=== PATIENT | male | born 1940 | race American Indian/Alaskan Native ===

== ENCOUNTER 2018-01-17 09:58 | Inpatient (IN) | payer MEDICARE, BC ==
[2018-01-17] MEDS ORDERED: Sodium Chloride 0.9% 1,000 ML IV STA (10:33)
--- NOTE | 2018-01-17 10:48 | ED PDOC ---
Arrival/HPI - General Chief Complaint: GI Problem Time Seen by Provider: 01/17/18 10:32 Historian: Patient - History of Present Illness Narrative History of Present Illness (Text): 01/17/18 10:43 77yo male with no PMhx who present with complaint of BBPR from last night. States he noticed blood in the toilet last night after bowel movement and this morning also. Reports an episode of vomiting this morning. Denies abdominal pain , chest pain, dizziness, SOB, diarrhea, constipation, melena, headache, any other complaint. Past Medical History - Provider Review Nursing Documentation Reviewed: Yes - Cardiac Hx Cardiac Disorders: No - Pulmonary Hx Respiratory Disorders: No - Neurological Hx Neurological Disorder: No - HEENT Hx HEENT Disorder: No - Renal Hx Renal Disorder: No - Endocrine/Metabolic Hx Endocrine Disorders: No - Hematological/Oncological Hx Blood Disorders: No - Integumentary Hx Dermatological Disorder: No - Musculoskeletal/Rheumatological Hx Musculoskeletal Disorders: No - Gastrointestinal Hx Gastrointestinal Disorders: No - Genitourinary/Gynecological Hx Genitourinary Disorders: No - Psychiatric Hx Psychophysiologic Disorder: No Hx Substance Use: No Family/Social History - Physician Review Nursing Documentation Reviewed: Yes Family/Social History: Unknown Family HX Smoking Status: Never Smoked Hx Alcohol Use: No Hx Substance Use: No Allergies/Home Meds Allergies/Adverse Reactions: Allergies No Known Allergies Allergy (Verified 01/17/18 10:03) Home Medications: Home Meds Medication Instructions Recorded Confirmed No Known Home Med 01/17/18 01/17/18 Review of Systems - Physician Review All systems were reviewed & negative as marked: Yes - Review of Systems Constitutional: Normal Eyes: Normal ENT: Normal Respiratory: Normal Cardiovascular: Normal Gastrointestinal: Vomiting, Hematochezia. absent: Abdominal Pain, Constipation , Diarrhea, Nausea, Hematemesis Genitourinary Male: Normal Musculoskeletal: Normal Skin: Normal Neurological: Normal Endocrine: Normal Hemo/Lymphatic: Normal Psychiatric: Normal Physical Exam Vital Signs Reviewed: Yes Vital Signs Temp Pulse Resp BP Pulse Ox 01/17/18 11:20 98 H 18 128/74 100 01/17/18 10:06 97.9 F 120 H 17 131/81 100 Temperature: Afebrile Blood Pressure: Normal Pulse: Tachycardic Respiratory Rate: Normal Appearance: Positive for: Well-Appearing, Non-Toxic, Comfortable Pain Distress: None Mental Status: Positive for: Alert and Oriented X 3 - Systems Exam Head: Present: Atraumatic, Normocephalic Pupils: Present: PERRL Extroacular Muscles: Present: EOMI Conjunctiva: Present: Normal Mouth: Present: Moist Mucous Membranes Neck: Present: Normal Range of Motion Respiratory/Chest: Present: Clear to Auscultation, Good Air Exchange. No: Respiratory Distress, Accessory Muscle Use Cardiovascular: Present: Regular Rate and Rhythm, Normal S1, S2. No: Murmurs Abdomen: Present: Distention (Secondary to body habitus), Normal Bowel Sounds, Other (soft). No: Tenderness, Peritoneal Signs, Rebound, Guarding, McBurney's Point Tender, Rovsing's Sign Present Back: Present: Normal Inspection Upper Extremity: Present: Normal Inspection. No: Cyanosis, Edema Lower Extremity: Present: Normal Inspection. No: Edema Neurological: Present: GCS=15, CN II-XII Intact, Speech Normal Skin: Present: Warm, Dry, Normal Color. No: Rashes Psychiatric: Present: Alert, Oriented x 3, Normal Insight, Normal Concentration Medical Decision Making ED Course and Treatment: 01/17/18 11:49 PT in ED for stated history. He was tachy, but not in distress. He was hydrated and repeat HR improved s/p. He had gross BPR in ED. h/H 11.1 EKG NSR with nonspecific T wave abnormality @ 100bpm. CXR NAD Pt does not see a Doctor. He needs admission for further evaluation of his active bleeding. Case was DW Dr. Kaye and he accepted pt to his service. He saw pt in ED by the bedside. - Lab Interpretations Lab Results: 01/17/18 10:25 01/17/18 10:25 Lab Results 01/17/18 10:44: Blood Type B POSITIVE, Antibody Screen Negative, BBK History Checked No verified bt 01/17/18 10:25: Sodium 136, Potassium 4.3, Chloride 101, Carbon Dioxide 20 L, Anion Gap 20, BUN 20, Creatinine 1.2, Est GFR ( Amer) > 60, Est GFR (Non- Af Amer) 58, Random Glucose 186 H, Calcium 9.0, Total Bilirubin 0.5, AST 30, ALT 27, Alkaline Phosphatase 53, Lactate Dehydrogenase 363, Total Creatine Kinase 106, Troponin I 0.02, Total Protein 7.2, Albumin 4.0, Globulin 3.2, Albumin/Globulin Ratio 1.2, Lipase 226 01/17/18 10:25: PT 14.1 H, INR 1.22 H, APTT 28.2 01/17/18 10:25: WBC 11.1 H, RBC 3.52, Hgb 11.1 L, Hct 33.2 L, MCV 94.3, MCH 31.5 , MCHC 33.4, RDW 14.6 H, Plt Count 251, MPV 9.2, Gran % 73.9 H, Lymph % (Auto) 21.1 L, Larimer % (Auto) 4.8, Eos % (Auto) 0.0 L, Baso % (Auto) 0.2, Gran # 8.19 H , Lymph # (Auto) 2.3, Larimer # (Auto) 0.5, Eos # (Auto) 0.0, Baso # (Auto) 0.02 01/17/18 10:25: Urine Color Yellow, Urine Appearance Clear, Urine pH 6.0, Ur Specific Becker >= 1.030, Urine Protein 30 H, Urine Glucose (UA) Negative, Urine Ketones Negative, Urine Blood Trace-intact H, Urine Nitrate Negative, Urine Bilirubin Negative, Urine Urobilinogen 0.2, Ur Leukocyte Esterase Negative , Urine RBC 2 - 5, Urine WBC 0 - 2, Ur Epithelial Cells None, Amorphous Sediment Few, Urine Bacteria Mod, Fine Granular Casts 0 - 2 - RAD Interpretation Radiology Orders: 01/17/18 10:43 CHEST PORTABLE [RAD] Stat - Medication Orders Current Medication Orders: Sodium Chloride (Sodium Chloride 0.45%) 1,000 mls @ 60 mls/hr IV .[id number] [facility] Last Admin: 01/17/18 11:33 Dose: 60 mls/hr eMAR Start Stop Document 01/17/18 11:33 SE (Rec: 01/17/18 11:33 SE [id number]) Intravenous Solution Start Date 01/17/18 Start Time 11:33 Pantoprazole Sodium (Protonix 40mg Ivpb) 40 mg in 100 mls @ 200 mls/hr IVPB 0600 [facility] Ondansetron HCl (Zofran Inj) 4 mg IVP Q6H PRN PRN Reason: Nausea/Vomiting Discontinued Medications Sodium Chloride (Sodium Chloride 0.9%) 1,000 mls @ 999 mls/hr IV .Q1H1M STA Stop: 01/17/18 11:33 Last Admin: 01/17/18 10:38 Dose: 999 mls/hr eMAR Start Stop Document 01/17/18 10:38 SE (Rec: 01/17/18 10:38 SE [id number]) Intravenous Solution Start Date 01/17/18 Start Time 10:38 Ondansetron HCl (Zofran Inj) 4 mg IVP STAT STA Stop: 01/17/18 10:35 Last Admin: 01/17/18 10:38 Dose: 4 mg IVP Administration Document 01/17/18 10:38 SE (Rec: 01/17/18 10:38 SE [id number]) Charges for Administration # of IVP Administrations 1 Pantoprazole Sodium (Protonix Inj) 40 mg IVP STAT STA Stop: 01/17/18 10:34 Last Admin: 01/17/18 10:38 Dose: 40 mg IVP Administration Document 01/17/18 10:38 SE (Rec: 01/17/18 10:38 SE [id number]) Charges for Administration # of IVP Administrations 1 Disposition/Present on Arrival - Present on Arrival Any Indicators Present on Arrival: No History of DVT/PE: No History of Uncontrolled Diabetes: No Urinary Catheter: No History of Decub. Ulcer: No History Surgical Site Infection Following: None - Disposition Have Diagnosis and Disposition been Completed?: Yes Diagnosis: GI bleed Disposition: HOSPITALIZED Disposition Time: 11:30 Patient Plan: Admission Condition: FAIR
[2018-01-17 10:59] LABS: BASO # 0.02 K/mm3 (0.0-2.0); BASO % 0.2 % (0.0-3.0); GRAN # 8.19 (1.4-6.5); GRAN % 73.9 % (50.0-68.0); HEMOGLOBIN 11.1 g/dL (14.0-18.0); LYMPH # 2.3 (1.2-3.4); LYMPH % 21.1 % (22.0-35.0); MEAN CELL VOLUME 94.3 fl (80.0-105.0); MEAN CORPUSCULAR HEMOGLOBIN 31.5 pg (25.0-35.0); MEAN CORPUSCULAR HGB CONC 33.4 g/dl (31.0-37.0); MEAN PLATELET VOLUME 9.2 fl (7.0-11.0); MONO # 0.5 (0.1-0.6); MONO % 4.8 % (1.0-6.0); RBC 3.52 10^6/uL (3.5-6.1); RED CELL DISTRIBUTION WIDTH 14.6 % (11.5-14.5); WHITE BLOOD COUNT 11.1 10^3/ul (4.5-11.0)
[2018-01-17 11:04] LABS: ALB/GLOB RATIO 1.2 (1.1-1.8); ALT/SGPT 27 U/L (7-56); AST/SGOT 30 U/L (17-59); BLOOD UREA NITROGEN 20 mg/dL (7-21); GFR AFRICAN-AMERICAN > 60; GFR NON-AFRICAN AMERICAN 58; LIPASE 226 U/L (23-300)
[2018-01-17 11:05] LABS: URINE BILIRUBIN NEGATIVE (NEGATIVE); URINE BLOOD TRACE-INTACT (NEGATIVE); URINE GLUCOSE (UA) NEGATIVE (NEGATIVE); URINE LEUKOCYTE ESTERASE NEGATIVE Leu/uL (NEGATIVE); URINE NITRATE NEGATIVE (NEGATIVE); URINE PROTEIN 30 mg/dL (<30 mg/dL); URINE UROBILINOGEN 0.2 E.U./dL (<1 E.U./dL)
[2018-01-17 11:07] LABS: URINE APPEARANCE CLEAR (CLEAR); URINE COLOR YELLOW (YELLOW)
[2018-01-17 11:14] LABS: TROPONIN I 0.02 ng/mL
[2018-01-17 11:16] LABS: INR 1.22 (0.93-1.08); PARTIAL THROMBOPLASTIN TIME 28.2 Seconds (25.1-36.5); PROTHROMBIN TIME 14.1 SECONDS (9.4-12.5)
[2018-01-17] MEDS: Sodium Chloride 0.45% 1,000 ML IV SCH (11:33)
[2018-01-17 11:44] LABS: URINE BACTERIA MOD (NEG); URINE WBC 0 - 2 /hpf (0-6)
[2018-01-17 11:45] LABS: URINE AMORPHOUS SEDIMENT FEW; URINE FINE GRANULAR CAST 0 - 2 /hpf (0-2)
--- NOTE | 2018-01-17 12:18 | RAD ---
HISTORY: admission COMPARISON: No prior. FINDINGS: LUNGS: No active pulmonary disease. PLEURA: No significant pleural effusion identified, no pneumothorax apparent. CARDIOVASCULAR: Normal. OSSEOUS STRUCTURES: No significant abnormalities. VISUALIZED UPPER ABDOMEN: Normal. OTHER FINDINGS: None. IMPRESSION: No active disease.
--- NOTE | 2018-01-17 12:30 | CARD ---
APPROVED REPORT EKG Measurement Heart [id number] WI [id number] <Conclusion> Normal sinus rhythm Nonspecific T wave abnormality Abnormal ECG
[2018-01-17 12:55] VITALS: BMI 24.3
[2018-01-17] MEDS ORDERED: Pneumococcal 23-Valent Vaccine IM ONE (12:55)
[2018-01-17] MEDS ORDERED: Influenza Vaccine 60 mcg/0.5 mL SYR (4YR UP) IM ONE (12:55)
[2018-01-18] MEDS: Pantoprazole 40mg/100mL NS 40 MG/100 ML BAG IVPB SCH (05:36)
[2018-01-18] MEDS ORDERED: Barium Sulfate Susp 2.1% w/v, 2.0% w/w 450 mL Bottle PO ONE (07:28)
[2018-01-18 08:09] LABS: HEMOGLOBIN 9.5 g/dL (14.0-18.0); MEAN CELL VOLUME 93.8 fl (80.0-105.0); MEAN CORPUSCULAR HGB CONC 33.1 g/dl (31.0-37.0); MEAN PLATELET VOLUME 8.7 fl (7.0-11.0); RBC 3.06 10^6/uL (3.5-6.1); RED CELL DISTRIBUTION WIDTH 14.8 % (11.5-14.5); WHITE BLOOD COUNT 7.7 10^3/ul (4.5-11.0)
--- NOTE | 2018-01-18 08:12 | HP ---
HISTORY OF PRESENT ILLNESS: I was called on to the emergency room to admit this nice young man who has had some bright red blood per rectum. He is a little uncomfortable. No abdominal pain. He had an episode of vomiting. Asking for Dr. Chris to be consulted. He has no medical history. He is a 77-year-old man with blood in the stools and nauseousness. FAMILY HISTORY: He has no family history. SOCIAL HISTORY: Never smoked. No alcohol. No drugs. ALLERGIES: NO KNOWN DRUG ALLERGIES. MEDICATIONS: Does not take any medications. REVIEW OF SYSTEMS: He has no vision changes, no hearing changes. No sore throat. No chest pain or palpitations. No shortness of breath or coughing. No wheezes or rhonchi. He did have vomiting, hematochezia; he had blood in the stools. No problems urinating. No back pain or leg pain or skin issues. No anxiety or depression or sweating. No tremors. PHYSICAL EXAMINATION: VITAL SIGNS: He has 97.9 temperature, 120 pulse, came down to 98, 17 respiratory rate, 131/81 blood pressure, 100% O2 sat. GENERAL: Well appearing, nontoxic, comfortable, alert, oriented x3. HEENT: Head is atraumatic, normocephalic. His pupils are equal, reactive to light and accommodation. Extraocular muscles are intact. Throat is moist. NECK: Supple. HEART: Regular rate. Normal S1, S2. LUNGS: Clear to auscultation bilaterally. ABDOMEN: Soft, nontender. Positive bowel sounds. No guarding, no rebound. No CVA tenderness. EXTREMITIES: No edema. NEUROLOGICAL: GCS is 15. Cranial nerves are II through XII grossly intact. SKIN: Warm and dry. Alert and oriented x3. He had bright red blood per rectum. He is throwing up. No blood in the throw up. ASSESSMENT AND PLAN: He will be here with IV fluids, Protonix. We will make him n.p.o. Get Dr. Chris, Gastroenterology, to see him. We will put him on Protonix and Zofran and hopefully, he will do well. Az Kaye DO
[2018-01-18 08:21] LABS: ALB/GLOB RATIO 1.3 (1.1-1.8); ALBUMIN 3.8 g/dL (3.0-4.8); ALT/SGPT 29 U/L (7-56); AST/SGOT 32 U/L (17-59); BLOOD UREA NITROGEN 14 mg/dL (7-21); CALCIUM 9.1 mg/dL (8.4-10.5); GFR AFRICAN-AMERICAN > 60; GFR NON-AFRICAN AMERICAN 58
[2018-01-18] MEDS ORDERED: Iohexol 350 MG/100 ML VIAL ONE (08:59)
--- NOTE | 2018-01-18 11:16 | CT ---
PROCEDURE: CT Abdomen and Pelvis with contrast HISTORY: GI BLEEDING LEUCOCYTOSIS R/O COLITIS COMPARISON: None. TECHNIQUE: Contrast dose: 100 cc of Omni 350 Radiation dose: Total exam DLP = 317 mGy-cm. This CT exam was performed using one or more of the following dose reduction techniques: Automated exposure control, adjustment of the mA and/or kV according to patient size, and/or use of iterative reconstruction technique. FINDINGS: LOWER THORAX: Unremarkable. LIVER: Unremarkable. No gross lesion or ductal dilatation. GALLBLADDER AND BILE DUCTS: Unremarkable. PANCREAS: Unremarkable. No gross lesion or ductal dilatation. SPLEEN: Unremarkable. ADRENALS: Unremarkable. No mass. KIDNEYS AND URETERS: Unremarkable. No hydronephrosis. No solid mass. VASCULATURE: Unremarkable. No aortic aneurysm. BOWEL: There is severe mural thickening in the cecum and ascending colon. This could be secondary to colitis. However a colon malignancy cannot be excluded. Colonoscopy followup may be indicated. APPENDIX: Normal appendix. PERITONEUM: Unremarkable. No free fluid. No free air. LYMPH NODES: Unremarkable. No enlarged lymph nodes. BLADDER: Unremarkable. REPRODUCTIVE: The prostate is enlarged measuring 58 mm transversely. BONES: No acute fracture. OTHER FINDINGS: None. IMPRESSION: There is severe mural thickening in the cecum and ascending colon. This could be secondary to colitis. However a colon malignancy cannot be excluded.
--- NOTE | 2018-01-18 11:17 | CON ---
DATE: This is Dr. Arnett covering for Dr. Demetrio Chris. REASON FOR CONSULTATION: GI bleeding, bleeding per rectum. HISTORY OF PRESENT ILLNESS: This 77-year-old patient with past medical history of dyslipidemia, noticed bright red blood per rectum last night. He has not had any bleeding at that time. Again, we have noticed another episode of bright red blood per rectum this morning and the patient was concerned, presented to the Emergency Room. PAST MEDICAL HISTORY: Other past medical history is significant for dyslipidemia. The patient admits having colonoscopy done many years ago at [facility], does not remember the details. SOCIAL HISTORY: Denies alcohol. No smoking. ALLERGIES: NO KNOWN DRUG ALLERGY. REVIEW OF SYSTEMS: Positive as above. Other systems reviewed. PHYSICAL EXAMINATION GENERAL: The patient is lying on the bed, not in acute distress. VITAL SIGNS: Temperature 98.7, pulse 98, blood pressure 142/95, respirations 18. HEENT: Atraumatic, anicteric. NECK: Supple. HEART: S1, S2 heard. LUNGS: Bilateral air entry present. ABDOMEN: Soft. There is no mass palpable, no tenderness. EXTREMITIES: No edema. No cyanosis.+ NEUROLOGICAL: Alert, oriented. Moves all the extremities. LABORATORY DATA: Hemoglobin 11.1, hematocrit 33.2, WBC is 11.1, platelets 251,000. LFTs normal. IMPRESSION: 1. This 77-year-old patient with history of dyslipidemia, presented with acute onset of bright red blood per rectum yesterday. He had another episode this morning. No previous episodes like this. Hemoglobin is 11.1. The patient had mildly elevated leukocytosis. Differential diagnoses include internal hemorrhoids, diverticulosis, angiodysplasia, colonic neoplasia; upper GI source also should be considered in the differential diagnosis. 3. The patient does have mild leukocytosis. We would recommend: 1. Followup of the hemoglobin and hematocrit. 2. Agree with empiric treatment of the PPI. 3. The patient would benefit from the EGD and also, colonoscopy to further evaluate. The patient appears to be more stable. No further episodes of bleeding. The patient has a mildly elevated leukocytosis, rule out any colitis. We will request for CT scan of the abdomen and pelvis with p.o. and IV contrast to further evaluate. The patient will consider upper GI endoscopy and also, colonoscopy to further evaluate. Timing will be based on the clinical course and review of the above workup. Thank you very much for allowing me to participate in the care of the patient. Anastasia Arnett MD [facility]
[2018-01-18] MEDS: Insulin Reg-MEDIUM-Coverage SC SCH ×3 (12:34→23:00)
[2018-01-18] MEDS ORDERED: Peg-Electrolyte Oral Soln 4L (Golytely) PO ONE (15:00)
--- NOTE | 2018-01-18 15:15 | PN ---
DATE: SUBJECTIVE: I saw him resting comfortably in bed. No complaints at this time. Awaiting for GI to come in to make a decision on whether to have a procedure or not. OBJECTIVE VITAL SIGNS: He has 98.7 temperature, 98 pulse. Blood pressure 142/95, I will put him on some blood pressure medications. Respiratory rate is 18 , oxygen saturation is 100% on room air. HEENT: Head is atraumatic, normocephalic. HEART: Regular rate. LUNGS: Clear to auscultation. ABDOMEN: Soft, nontender. Positive bowel sounds. EXTREMITIES: Have no edema. He is currently on Zofran, IV fluids and IV Protonix. I will add some blood pressure medications and Norvasc. LABORATORY DATA: He has 136 sodium, potassium 4.3, BUN 20, creatinine 1.2. Sugar is 186, I will put him on coverage. He might be a diabetic also. He has calcium of 9, AST of 30, ALT of 27, alkaline phosphatase of 53, troponin I is 0.02, total protein is 7.2. He has 7.7 white count, hemoglobin dropped 2 grams to 9.5, hematocrit 28.7 and 232,000 platelets. He had moderate bacteria in the urine. I will put him on some Rocephin. Wait for GI to come in with the CAT scan of the abdomen and pelvis that is pending. He is on a liquid diet. Az Kaye DO
[2018-01-18] MEDS: Sodium Chloride 0.45% 1,000 ML IV SCH (20:57)
--- NOTE | 2018-01-18 21:06 | CON ---
GASTROENTEROLOGY CONSULTATION REQUESTING PHYSICIAN: REASON FOR CONSULTATION: I have been asked to see this 77-year-old male, previously healthy with no prior medical history, who comes to the hospital with 2 days of rectal bleeding. He describes the amount is moderate. He denies any abdominal pain, nausea, vomiting, chest pain, palpitations or shortness of breath. He denies any diarrhea or straining to move his bowels. The patient states that he last had a colonoscopy about 10 years ago and was told everything was okay. PAST MEDICAL HISTORY: Unremarkable. SOCIAL HISTORY: Denies cigarette smoking or alcohol use. FAMILY HISTORY: Noncontributory. REVIEW OF SYSTEMS: A 14-point review of systems is notable for rectal bleeding. MEDICATIONS AT HOME: None. PHYSICAL EXAMINATION: GENERAL: Well-developed male, lying in bed, in no distress. VITAL SIGNS: Reveal temperature of 98.7, blood pressure 142/95, heart rate of 98. HEENT: Reveal sclerae to be white. Conjunctivae pink. NECK: Supple. CHEST: Lungs are clear. HEART: Exam reveals regular rate and rhythm. ABDOMEN: Soft, nontender. No mass. EXTREMITIES: Show no edema. RECTAL: Exam shows no mass. There is dark red blood in the rectal vault. LABORATORY DATA: Reveal hemoglobin of 9.5, this is down from 11.1 yesterday. Chemistries reveal normal electrolytes. AST, ALT, alkaline phosphatase were all normal. PT is 14.1 with an INR 1.22. IMPRESSION: Lower GI bleed. RECOMMENDATIONS: 1. Follow serial hematocrits. 2. Bowel prep has been ordered for colonoscopy in the a.m. 3. CT scan of the abdomen and pelvis has been ordered. Demetrio Chris MD
[2018-01-19] MEDS: Pantoprazole 40mg/100mL NS 40 MG/100 ML BAG IVPB SCH (06:18)
[2018-01-19] MEDS: Insulin Reg-MEDIUM-Coverage SC SCH ×2 (07:39→11:58)
[2018-01-19 07:57] LABS: HEMOGLOBIN 8.5 g/dL (14.0-18.0); MEAN CELL VOLUME 93.8 fl (80.0-105.0); MEAN CORPUSCULAR HGB CONC 33.1 g/dl (31.0-37.0); MEAN PLATELET VOLUME 8.6 fl (7.0-11.0); RBC 2.74 10^6/uL (3.5-6.1); WHITE BLOOD COUNT 10.4 10^3/ul (4.5-11.0)
[2018-01-19] MEDS ORDERED: Lidocaine 2% Inj (20ml) ONE (07:59)
[2018-01-19] MEDS ORDERED: Propofol 10 mg/ml Inj (20 ML) ONE (07:59)
[2018-01-19 08:10] LABS: ALB/GLOB RATIO 1.2 (1.1-1.8); ALBUMIN 3.5 g/dL (3.0-4.8); ALT/SGPT 29 U/L (7-56); AST/SGOT 33 U/L (17-59); BLOOD UREA NITROGEN 12 mg/dL (7-21); CALCIUM 8.9 mg/dL (8.4-10.5); GFR AFRICAN-AMERICAN > 60; GFR NON-AFRICAN AMERICAN > 60
[2018-01-19] MEDS ORDERED: Sodium Chloride 0.9% 1,000 ML IV SCH (09:00)
[2018-01-19 09:04] VITALS: RESP 12; TEMP 98
[2018-01-19 09:13] VITALS: O2SAT 96
[2018-01-19 09:26] VITALS: PULSE 80
[2018-01-19 09:30] VITALS: BP 128/66
--- NOTE | 2018-01-20 07:33 | DS ---
HISTORY OF PRESENT ILLNESS: He had a colonoscopy with Dr. Chris today and Dr. Chris said he did very well. Nothing was found and he could be discharged. So, he will be going home on Protonix and Norvasc. He will follow up with his primary care doctor. He should do very well. HOME MEDICATION: He is on Protonix 40 mg and Norvasc 2.5 mg - that is what he is going home on. He can also continue his multivitamin, his garlic and his vitamin D when he is home. PHYSICAL EXAMINATION: VITAL SIGNS: He has a 98 temperature, 80 pulse, 120/66 blood pressure, 12 respiratory rate, 96% O2 sat. HEENT: Head is atraumatic, normocephalic. HEART: Regular rate. LUNGS: Clear to auscultation. ABDOMEN: Soft. EXTREMITIES: No edema. LABORATORY DATA: He has a 10.4 white count, 8.5 hemoglobin, 25.7 hematocrit with a 207 platelets. I am also going to put him on iron. Sodium 141, potassium 3.8, BUN 12, creatinine 1.1. GFR is greater than 60. Sugar is 107. Calcium is 8.9, total bilirubin 0.5, AST is 33, ALT is alkaline phosphatase 46, total protein 6.4. He was also quite anemic and he had urinary tract infection. So, I am going to add iron to his mix of medications. I am also going to put him on Macrobid for his urinary tract infection and he should be able to go today after lunch. Az Kaye DO [facility]
--- NOTE | 2018-01-20 14:17 | PQF ANEMIA ---
01/20/18 Dr. Kaye, Patient came in with GI bleeding and you state "he was quite anemic" on your discharge summary. Please indicate whether anemia is due to acute/chronic GI bleeding. Thank you. Clarification of your documentation is requested to better reflect the severity of illness and intensity of treatment of your patient. Indicators present [] Anemia [] Drop in H&H from []___ to []___ [] Hypotension [] GI Bleed [] Transfusion(s) [] Acute bleed other sites [] Tachycardia [] Surgical Procedure Blood Loss (expected not a complication) Other:[] Location in the medical record that reflects the above clinical findings: [] Treatment Provided: [] PHYSICIAN'S RESPONSE Based on your medical judgment of the clinical indicators outlined above, are you treating this patient for a known or suspected: [] Acute blood loss anemia [] Chronic blood loss anemia [xxxx] Acute on Chronic blood loss anemia [] Anemia due to malignancy [] Anemia due to chemotherapy or radiation therapy [] Anemia of Chronic Disease, please specify: [] [] Other, please indicate type of anemia []____ [] If Unable to Determine, please check the box, sign and date. Present On Admission (POA) Indicator: [] Present at the time of admission [] Not present at the time of admission [] Clinically Undetermined In responding to this query, please exercise your independent professional judgment. The fact that a question is asked does not imply that any particular answer is desired or expected. Thank you for your clarification on this documentation. If you have any questions please call:[ ] * Thank you, [ ] inpatient pharmacist [facility]
== END 2018-01-19 14:47 | disposition home or self-care (01) | DRG 378 ==
LOC: ED 09:58 → ERH 11:30 → 5RSO 12:10
PROVIDERS: ADMIT Family Medicine; ATTEND Family Medicine
PROC: 0DBK8ZZ Excision of Ascending Colon, Via Natural or Artificial Opening Endoscopic (ICD-10-PCS; principal; 2018-01-19 08:00)
DX: K92.2 Gastrointestinal hemorrhage, unspecified (principal); N39.0 Urinary tract infection, site not specified; D50.0 Iron deficiency anemia secondary to blood loss (chronic); D12.2 Benign neoplasm of ascending colon; D62 Acute posthemorrhagic anemia; D72.829 Elevated white blood cell count, unspecified; K57.30 Diverticulosis of large intestine without perforation or abscess without bleeding; K64.8 Other hemorrhoids; E78.5 Hyperlipidemia, unspecified

== ENCOUNTER 2018-02-16 06:19 | Day surgery (SDC) | payer MEDICARE, BC ==
[2018-02-08 10:42] VITALS: BMI 21.2
[2018-02-16] MEDS ORDERED: Lidocaine 1% Inj (20ml) ONE (08:11)
[2018-02-16] MEDS ORDERED: Etomidate 20 mg/10ml Inj IV ONE ×2 (08:11→08:12)
[2018-02-16] MEDS ORDERED: Propofol 10 mg/ml Inj (20 ML) ONE (08:12)
[2018-02-16] MEDS ORDERED: Sodium Chloride 0.9% 1,000 ML IV SCH (08:30)
[2018-02-16 12:25] VITALS: BP 128/77; PULSE 76; RESP 19; TEMP 98.3; O2SAT 100
== END 2018-02-16 10:00 | disposition home or self-care (01) ==
LOC: ENDO 06:19
PROVIDERS: ATTEND Specialist
DX: K25.9 Gastric ulcer, unspecified as acute or chronic, without hemorrhage or perforation (principal); K44.9 Diaphragmatic hernia without obstruction or gangrene; K29.50 Unspecified chronic gastritis without bleeding; D64.9 Anemia, unspecified
CPT/HCPCS: 43239; 88305; 88342; J2704; J7040 ×2

== ENCOUNTER 2019-04-03 09:45 | Outpatient (CLI) | payer MEDICARE | END 2019-04-03 09:46 | disposition home or self-care (01) | LOC: RAD 09:46 ==